=== PATIENT | male | born 1990 ===

== ENCOUNTER 2016-06-07 23:56 | Emergency (ER) | payer MEDICAID ==
[2016-06-08 00:06] VITALS: BMI 46.6
[2016-06-08] MEDS ORDERED: Sodium Chloride 0.9% 1,000 ML IV STA (00:19)
--- NOTE | 2016-06-08 00:24 | ED PDOC ---
Arrival/HPI - General Chief Complaint: GI Problem Time Seen by Provider: 06/08/16 00:19 Historian: Patient - History of Present Illness Narrative History of Present Illness (Text): 06/08/16 00:20 26 y/o male, pmh including appendectomy and cholecystomy, allergic to macrolide and penicillin, c/o abdominal pain with nausea and vomiting x 2 days. Pt. stated that he woke up yesterday morning for fasting blood, been having nausea and vomiting when eating, no chest pain or shortness of breath, no dizziness, no change in vision, no palpitation, no numbness or tingling, no other medical or psychological complaints. Pt. has no recent use of antibiotics for the past 4 weeks, no recent traveling for the past 2 months. Past Medical History - Provider Review Nursing Documentation Reviewed: Yes - Infectious Disease Hx of Infectious Diseases: None - Tetanus Immunization Tetanus Immunization: Up to Date - Cardiac Hx Cardiac Disorders: Yes Hx Heart Murmur: Yes Other/Comment: mitral valve repair - Pulmonary Hx Respiratory Disorders: Yes Hx Asthma: Yes (childhood) - Neurological Hx Neurological Disorder: No - HEENT Hx HEENT Disorder: No - Renal Hx Renal Disorder: No - Endocrine/Metabolic Hx Endocrine Disorders: No - Hematological/Oncological Hx Blood Disorders: No - Integumentary Hx Dermatological Disorder: No - Musculoskeletal/Rheumatological Hx Musculoskeletal Disorders: No - Gastrointestinal Hx Gastrointestinal Disorders: No - Genitourinary/Gynecological Hx Genitourinary Disorders: No - Psychiatric Hx Anxiety: Yes (patient reported - not diagnosed) Hx Panic Disorder: Yes (one panic attack) Hx Substance Use: No - Surgical History Hx Appendectomy: Yes Hx Cholecystectomy: Yes Other/Comment: mitral valve repair - Anesthesia Hx Anesthesia: Yes Hx Anesthesia Reactions: No Hx Malignant Hyperthermia: No Family/Social History - Physician Review Nursing Documentation Reviewed: Yes Family/Social History: Unknown Family HX Smoking Status: Never Smoked Hx Alcohol Use: Yes (social) Hx Substance Use: No Allergies/Home Meds Allergies/Adverse Reactions: Allergies azithromycin [From Zithromax] Allergy (Verified 01/13/16 13:27) RASH Penicillins Allergy (Verified 01/13/16 13:27) RASH Review of Systems - Review of Systems Constitutional: absent: Fatigue, Fevers Eyes: absent: Vision Changes ENT: absent: Hearing Changes Respiratory: absent: Cough Cardiovascular: absent: Chest Pain Gastrointestinal: Abdominal Pain, Nausea, Vomiting. absent: Diarrhea Musculoskeletal: absent: Arthralgias, Back Pain, Neck Pain, Joint Swelling Skin: absent: Rash, Pruritis, Other Neurological: absent: Headache, Dizziness, Focal Weakness, Gait Changes, Speech Changes, Facial Droop, Disequilibrium, Seizure Physical Exam Vital Signs Reviewed: Yes Vital Signs Temp Pulse Resp BP Pulse Ox 06/08/16 01:48 99.5 F 102 H 16 120/77 98 06/08/16 00:05 99.6 F 115 H 18 122/89 97 Temperature: Afebrile Blood Pressure: Normal Pulse: Tachycardic Respiratory Rate: Normal Appearance: Positive for: Well-Appearing, Non-Toxic, Uncomfortable Pain Distress: Moderate Mental Status: Positive for: Alert and Oriented X 3 - Systems Exam Head: Present: Atraumatic, Normocephalic Pupils: Present: PERRL Extroacular Muscles: Present: EOMI Conjunctiva: Present: Normal Mouth: Present: Moist Mucous Membranes Neck: Present: Normal Range of Motion Respiratory/Chest: Present: Clear to Auscultation, Good Air Exchange. No: Respiratory Distress, Accessory Muscle Use Cardiovascular: Present: Regular Rate and Rhythm, Normal S1, S2. No: Murmurs Abdomen: Present: Tenderness (generalized), Distention. No: Normal Bowel Sounds (hypoactive), Peritoneal Signs, Rebound, Guarding Back: Present: Normal Inspection. No: CVA Tenderness Upper Extremity: Present: Normal Inspection. No: Cyanosis, Edema Lower Extremity: Present: Normal Inspection. No: Edema Neurological: Present: GCS=15, Speech Normal, Motor Func Grossly Intact, Gait Normal, Memory Normal Skin: Present: Warm, Dry, Normal Color. No: Rashes Psychiatric: Present: Alert, Oriented x 3, Normal Insight, Normal Concentration Medical Decision Making ED Course and Treatment: 06/08/16 00:23 Viral syndrome vs. instestinal obstruction vs. gastritis vs. influenza vs. obstructing renal stone -labs/ua/lipase -CT abdomen/pelvis -IVF/zofran/pepcid -Observe and reassess 06/08/16 01:17 -Labs are non-significant -negative influenza -UA show no UTI -CT abdomen and pelvis show: mild hernia with no incarceration 06/08/16 01:58 -Pt. still feeling nauseous and tachycardia around 100s, d-dimer and ekg ordered. 06/08/16 03:00 -Ddimer within normal limit, no chest pain or shortness of breath, no pleuritic pain. -EKG show no acute ST or T wave changes. -I discussed the case with Dr. Zhu, he suggest to discharge the patient home with supportive treatment. Pt. stated that he has history of anxiety. -Discharge home with zofran, tamiflu, stay hydrated, take tylenol for pain, follow up with your own pmd and GI within 2 days, return to the ER for any new or worsening signs or symptoms. - Lab Interpretations Lab Results: 06/08/16 00:35 06/08/16 00:35 Lab Results 06/08/16 02:00: D-Dimer, Quantitative 0.33 06/08/16 00:43: Urine Color Yellow, Urine Appearance Clear, Urine pH 6.0, Ur Specific [place] 1.025, Urine Protein Negative, Urine Glucose (UA) Negative, Urine Ketones Negative, Urine Blood Negative, Urine Nitrate Negative, Urine Bilirubin Negative, Urine Urobilinogen 0.2, Ur Leukocyte Esterase Negative 06/08/16 00:35: WBC 9.4 D, RBC 5.11, Hgb 15.1, Hct 43.7, MCV 85.5, MCH 29.5, MCHC 34.6, RDW 13.7, Plt Count 295, MPV 9.6, Gran % 87.3 H, Lymph % (Auto) 6.4 L , [place] % (Auto) 5.8, Eos % (Auto) 0.3 L, Baso % (Auto) 0.2, Gran # 8.17 H, Lymph # 0.6 L, [place] # 0.5, Eos # 0.0, Baso # 0.02, Sodium 138, Potassium 3.8, Chloride 99, Carbon Dioxide 25, Anion Gap 18, BUN 10, Creatinine 1.0, Est GFR ( Amer) > 60, Est GFR (Non-Af Amer) > 60, Random Glucose 117 H, Calcium 8.5, Total Bilirubin 1.0, AST 43, ALT 68 H, Alkaline Phosphatase 55, Total Protein 8.5 H, Albumin 4.5, Globulin 4.0, Albumin/Globulin Ratio 1.1, Lipase 36 , Influenza Typ A,B (EIA) Negative for flu a/b I have reviewed the lab results: Yes Interpretation: No clinic. lab abnormalty - RAD Interpretation Radiology Orders: 06/08/16 00:19 ABD & PELVIS W/O PO OR IV CONT [CT] Stat FINDINGS: Lower thorax: Small RIGHT diaphragmatic hernia containing fat. ABDOMEN: Liver: Fatty infiltration. Gallbladder and bile ducts: Cholecystectomy. No ductal dilation. Pancreas: Unremarkable. No ductal dilation. Spleen: No splenomegaly. Adrenals: No mass. Kidneys and ureters: No renal calculi. No hydronephrosis. Stomach and bowel: No definite mural thickening. No obstruction. Appendix: Appendectomy. PELVIS: Bladder: Apparent mild bladder wall thickening. Incomplete distention, limiting evaluation. No stones. Reproductive: Unremarkable as visualized. ABDOMEN and PELVIS: Intraperitoneal space: No significant fluid collection. No free air. Bones/joints: No acute fracture. Soft tissues: Tiny umbilical hernia containing fat. Vasculature: Retroaortic LEFT renal vein. No abdominal aortic aneurysm. Lymph nodes: No pathologically enlarged lymph nodes. IMPRESSION: 1. Mild cystitis vs underdistention. Correlate with urinalysis. 2. Incidental/non-acute findings are described above. Thank you for allowing us to participate in the care of your patient. Dictated and Authenticated by: Epi Bautista MD 06/08/2016 1:24 AM Eastern Time ([place] & [place]) Account Collector: Radiologist - EKG Interpretation EKG Interpretation (Text): 06/08/16 03:00 EKG: Sinus Tachycardia @ 102 BPM, no acute ST or T wave changes compared with previous ekg. Interpreted by ED Physician: Yes Type: 12 lead EKG Comparison: Com.w/previous EKG - Medication Orders Current Medication Orders: Discontinued Medications Famotidine (Pepcid) 20 mg IVP STAT STA Stop: 06/08/16 00:20 Last Admin: 06/08/16 00:41 Dose: 20 MG IVP Administration Document 06/08/16 00:41 [email or web address] (Rec: 06/08/16 00:41 [email or web address] Charges for Administration # of IVP Administrations 1 Sodium Chloride (Sodium Chloride 0.9%) 1,000 mls @ 999 mls/hr IV .Q1H1M STA Stop: 06/08/16 01:19 Last Admin: 06/08/16 00:41 Dose: 999 MLS/HR eMAR Start Stop Document 06/08/16 00:41 [email or web address] (Rec: 06/08/16 00:41 [email or web address] [email or web address]) Intravenous Solution Start Date 06/08/16 Start Time 00:41 End Date 06/08/16 Ondansetron HCl (Zofran Inj) 4 mg IVP STAT STA Stop: 06/08/16 00:20 Last Admin: 06/08/16 00:41 Dose: 4 MG IVP Administration Document 06/08/16 00:41 [email or web address] (Rec: 06/08/16 00:41 [email or web address] [email or web address]) Charges for Administration # of IVP Administrations 1 - PA / MOTOR PATROL OPERATOR / Resident Statement MD/DO has reviewed & agrees with the documentation as recorded. Disposition/Present on Arrival - Present on Arrival Any Indicators Present on Arrival: No History of DVT/PE: No History of Uncontrolled Diabetes: No Urinary Catheter: No History of Decub. Ulcer: No History Surgical Site Infection Following: None - Disposition Have Diagnosis and Disposition been Completed?: Yes Diagnosis: Nausea and vomiting in adult, Abdominal pain Disposition: HOME/ ROUTINE Disposition Time: 01:58 Patient Plan: Discharge Condition: IMPROVED Additional Instructions: Discharge home with zofran, tamiflu, stay hydrated, take tylenol for pain, follow up with your own pmd and GI within 2 days, return to the ER for any new or worsening signs or symptoms. Prescriptions: Oseltamivir Phosphate [Tamiflu] 75 mg PO BID #10 capsule Ondansetron ODT [Zofran ODT] 4 mg PO TID PRN #8 odt PRN Reason: Other Referrals: Rosemary Washington MD [Primary Care Provider] - Follow up with primary Samantha Hutton MD, MD [Medical Doctor] - Follow up with primary Forms: WORK NOTE
[2016-06-08 00:48] LABS: ADD MANUAL DIFF? NO
[2016-06-08 00:53] LABS: URINE BILIRUBIN NEGATIVE (NEGATIVE); URINE BLOOD NEGATIVE (NEGATIVE); URINE GLUCOSE (UA) NEGATIVE (NEGATIVE); URINE KETONE NEGATIVE (NEGATIVE); URINE LEUKOCYTE ESTERASE NEGATIVE Leu/uL (NEGATIVE); URINE PROTEIN NEGATIVE mg/dL (<30 mg/dL); URINE UROBILINOGEN 0.2 E.U./dL (<1 E.U./dL)
[2016-06-08 00:53] LABS: BASO # 0.02 K/mm3 (0.0-2.0); BASO % 0.2 % (0.0-3.0); EOS % 0.3 % (1.5-5.0); GRAN # 8.17 (1.4-6.5); GRAN % 87.3 % (50.0-68.0); HEMATOCRIT 43.7 % (42.0-52.0); LYMPH # 0.6 (1.2-3.4); LYMPH % 6.4 % (22.0-35.0); MEAN CELL VOLUME 85.5 fL (80.0-105.0); MEAN CORPUSCULAR HEMOGLOBIN 29.5 pg (25.0-35.0); MEAN CORPUSCULAR HGB CONC 34.6 g/dl (31.0-37.0); MEAN PLATELET VOLUME 9.6 fl (7.0-11.0); MONO # 0.5 (0.1-0.6); MONO % 5.8 % (1.0-6.0); PLATELET COUNT 295 10^3/uL (120.0-450.0); RED CELL DISTRIBUTION WIDTH 13.7 % (11.5-14.5); WHITE BLOOD COUNT 9.4 10^3/ul (4.5-11.0)
[2016-06-08 00:56] LABS: URINE APPEARANCE CLEAR (CLEAR); URINE COLOR YELLOW (YELLOW)
[2016-06-08 01:01] LABS: ALB/GLOB RATIO 1.1 (1.1-1.8); ALKALINE PHOSPHATASE 55 U/L (38-133); ALT/SGPT 68 U/L (7-56); AST/SGOT 43 U/L (15-59); BLOOD UREA NITROGEN 10 mg/dL (7-21); CALCIUM 8.5 mg/dL (8.4-10.5); CARBON DIOXIDE 25 mmol/L (21-33); CHLORIDE 99 mmol/L (98-107); GFR AFRICAN-AMERICAN > 60; GLUCOSE,RANDOM 117 mg/dL (70-110); LIPASE 36 U/L (23-300); POTASSIUM 3.8 mmol/L (3.6-5.0); SODIUM 138 mmol/L (132-148); TOTAL PROTEIN 8.5 g/dL (5.8-8.3)
--- NOTE | 2016-06-08 01:24 | CT ---
EXAM: CT Abdomen and Pelvis Without Intravenous Contrast. CLINICAL HISTORY: 26 years old, male; Signs and symptoms; Nausea and vomiting and other: Diarrhea; Prior surgery; Surgery type: Cholecystectomy and appendectomy; Additional info: Abdominal pain/nausea/vomiting TECHNIQUE: Axial computed tomography images of the abdomen and pelvis without intravenous contrast. This CT exam was performed using one or more of the following dose reduction techniques: automated exposure control, adjustment of the mA and/or kV according to patient size, and/or use of iterative reconstruction technique. Coronal and sagittal reformatted images were created and reviewed. COMPARISON: No relevant prior studies available. FINDINGS: Lower thorax: Small RIGHT diaphragmatic hernia containing fat. ABDOMEN: Liver: Fatty infiltration. Gallbladder and bile ducts: Cholecystectomy. No ductal dilation. Pancreas: Unremarkable. No ductal dilation. Spleen: No splenomegaly. Adrenals: No mass. Kidneys and ureters: No renal calculi. No hydronephrosis. Stomach and bowel: No definite mural thickening. No obstruction. Appendix: Appendectomy. PELVIS: Bladder: Apparent mild bladder wall thickening. Incomplete distention, limiting evaluation. No stones. Reproductive: Unremarkable as visualized. ABDOMEN and PELVIS: Intraperitoneal space: No significant fluid collection. No free air. Bones/joints: No acute fracture. Soft tissues: Tiny umbilical hernia containing fat. Vasculature: Retroaortic LEFT renal vein. No abdominal aortic aneurysm. Lymph nodes: No pathologically enlarged lymph nodes. IMPRESSION: 1. Mild cystitis vs underdistention. Correlate with urinalysis. 2. Incidental/non-acute findings are described above.
[2016-06-08 01:49] VITALS: TEMP 99.5; O2SAT 98
[2016-06-08 03:07] VITALS: BP 128/70; PULSE 99
[2016-06-08 03:18] VITALS: RESP 16
--- NOTE | 2016-06-08 10:06 | CARD ---
APPROVED REPORT EKG Measurement Heart [id number] <Conclusion> Sinus tachycardia Right bundle branch block No change
== END 2016-06-08 03:18 | disposition home or self-care (01) ==
LOC: ED 23:56
DX: R11.2 Nausea with vomiting, unspecified (principal); R10.9 Unspecified abdominal pain
CPT/HCPCS: 74176; 80053; 81003; 83690; 85025; 85378; 87804; 93005; 96374; 96375; 99284; J2405; J7040

== ENCOUNTER 2016-07-21 10:10 | Emergency (ER) | payer MEDICAID ==
[2016-07-21 10:18] VITALS: BMI 44.3
[2016-07-21 10:20] VITALS: RESP 18; O2SAT 98
--- NOTE | 2016-07-21 10:39 | ED PDOC ---
Arrival/HPI - General Historian: Patient - General Chief Complaint: Lower Extremity Problem/Injury Time Seen by Provider: 07/21/16 10:35 - History of Present Illness Narrative History of Present Illness (Text): 07/21/16 10:36 26 y/o male, no significant pmh, allergic to macrolides/penicillin, c/o rt. foot /ankle pain x 2 hours. Pt. was walking on the stair, eversion injury to the rt. foot/ankle, painful to bear weight, no numbness or tingling, no headache or night sweat, no dizziness, no rash, no other medical or psychological complaints. (Gage Munguia) Past Medical History - Provider Review Nursing Documentation Reviewed: Yes - Infectious Disease Hx of Infectious Diseases: None - Tetanus Immunization Tetanus Immunization: Up to Date - Cardiac Hx Cardiac Disorders: Yes Hx Heart Murmur: Yes Other/Comment: mitral valve repair - Pulmonary Hx Respiratory Disorders: Yes Hx Asthma: Yes (childhood) - Neurological Hx Neurological Disorder: No - HEENT Hx HEENT Disorder: No - Renal Hx Renal Disorder: No - Endocrine/Metabolic Hx Endocrine Disorders: No - Hematological/Oncological Hx Blood Disorders: No - Integumentary Hx Dermatological Disorder: No - Musculoskeletal/Rheumatological Hx Musculoskeletal Disorders: No - Gastrointestinal Hx Gastrointestinal Disorders: No - Genitourinary/Gynecological Hx Genitourinary Disorders: No - Psychiatric Hx Anxiety: Yes (patient reported - not diagnosed) Hx Panic Disorder: Yes (one panic attack) Hx Substance Use: No - Surgical History Hx Appendectomy: Yes Hx Cholecystectomy: Yes Other/Comment: mitral valve repair - Anesthesia Hx Anesthesia: Yes Hx Anesthesia Reactions: No Hx Malignant Hyperthermia: No Family/Social History - Physician Review Nursing Documentation Reviewed: Yes Family/Social History: Unknown Family HX Smoking Status: Never Smoked Hx Alcohol Use: Yes (social) Frequency of alcohol use: Socially Hx Substance Use: No Allergies/Home Meds Allergies/Adverse Reactions: Allergies azithromycin [From Zithromax] Allergy (Verified 01/13/16 13:27) RASH Penicillins Allergy (Verified 01/13/16 13:27) RASH Review of Systems - Review of Systems Constitutional: absent: Fatigue, Fevers Eyes: absent: Vision Changes ENT: absent: Hearing Changes Respiratory: absent: Cough, Sputum Cardiovascular: absent: Chest Pain Gastrointestinal: absent: Abdominal Pain, Nausea, Vomiting Musculoskeletal: Arthralgias. absent: Back Pain, Neck Pain, Joint Swelling, Myalgias Skin: absent: Rash, Pruritis, Skin Lesions, Laceration Neurological: absent: Headache, Dizziness, Focal Weakness, Gait Changes Psychiatric: absent: Anxiety, Depression, Suicidal Ideation Physical Exam Vital Signs Reviewed: Yes Temperature: Afebrile Pulse: Regular Respiratory Rate: Normal Appearance: Positive for: Well-Appearing, Non-Toxic, Comfortable Pain Distress: None Mental Status: Positive for: Alert and Oriented X 3 - Systems Exam Head: Present: Atraumatic, Normocephalic Pupils: Present: PERRL Extroacular Muscles: Present: EOMI Conjunctiva: Present: Normal Mouth: Present: Moist Mucous Membranes Neck: Present: Normal Range of Motion Respiratory/Chest: Present: Clear to Auscultation, Good Air Exchange. No: Respiratory Distress, Accessory Muscle Use Cardiovascular: Present: Regular Rate and Rhythm, Normal S1, S2. No: Murmurs Abdomen: Present: Normal Bowel Sounds. No: Tenderness, Distention, Peritoneal Signs Back: Present: Normal Inspection Upper Extremity: Present: Normal Inspection. No: Cyanosis, Edema Lower Extremity: Present: Normal Inspection, Other (Rt. ankle/foot: +ttp on the medial aspect of the foot with mild swelling along with mild on the medial ankle region, negative ashwini and simmons signs, FROM without limitation, sensation intact, motor 5/5, +DPPT pulses, capillary refill< 2 seconds, neurovascular intact. ). No: Edema Neurological: Present: GCS=15, CN II-XII Intact, Speech Normal Skin: Present: Warm, Dry, Normal Color. No: Rashes Psychiatric: Present: Alert, Oriented x 3, Normal Insight, Normal Concentration Vital Signs Temp Pulse Resp BP Pulse Ox 07/21/16 11:26 98.0 F 69 18 148/89 98 07/21/16 10:23 156/100 H 07/21/16 10:19 97.7 F 72 18 98 Medical Decision Making - RAD Interpretation Monument Setter Helper: Radiologist ED Course and Treatment: I was available for consultation during PA evaluation. The chart was reviewed by me, and I agree with disposition. The documented history was done by the physician jewel blocker and sawyer. The documented physical exam was done by the physician jewel blocker and sawyer. The documented procedures were done by the physician jewel blocker and sawyer. (Jerry Sutherland) 07/21/16 10:39 -rt. ankle/foot -motrin -observe and reassess 07/21/16 11:13 -xray show no fracture or dislocation but there is mild swelling which I advised the patient to repeat xrays after 5-7 days if pain persist to rule out any fracture as it might not be resulted now. -Discharge home with posterior splint, crutches, motrin, ice compression, nonweight bearing, follow up with your own pmd and orthopedic/fusing machine feeder within 2 days, return to the ER for any new or worsening signs or symptoms. (Gage Munguia) - RAD Interpretation Radiology Orders: 07/21/16 10:35 ANKLE RIGHT 3 VIEWS ROUTINE [RAD] Stat FOOT RIGHT 3 VIEWS ROUTINE [RAD] Stat Normal rt. foot and rt. ankle radiographs (Gage Munguia) - Medication Orders Current Medication Orders: Discontinued Medications Ibuprofen (Motrin Tab) 600 mg PO STAT STA Stop: 07/21/16 10:36 Last Admin: 07/21/16 10:42 Dose: 600 mg - PA / FACILITIES MAINTENANCE ASSISTANT / Resident Statement MD/DO has reviewed & agrees with the documentation as recorded. Disposition/Present on Arrival - Present on Arrival Any Indicators Present on Arrival: No History of DVT/PE: No History of Uncontrolled Diabetes: No Urinary Catheter: No History of Decub. Ulcer: No History Surgical Site Infection Following: None - Disposition Have Diagnosis and Disposition been Completed?: Yes Disposition Time: 11:16 Patient Plan: Discharge - Disposition Diagnosis: Injury of ankle and foot, Joint swelling Disposition: HOME/ ROUTINE Patient Problems: Current Active Problems Problem Status Onset Injury of ankle and foot Acute Joint swelling Acute Condition: IMPROVED Additional Instructions: Discharge home with posterior splint, crutches, motrin, ice compression, nonweight bearing, follow up with your own pmd and orthopedic/fusing machine feeder within 2 days, return to the ER for any new or worsening signs or symptoms. Prescriptions: Ibuprofen [Motrin] 600 mg PO QID PRN #24 tab PRN Reason: Other Referrals: Rosemary Washington MD [Primary Care Provider] - Follow up with primary Keron Valdivia DPM [Staff Provider] - Follow up with primary Fortino Browning MD [Staff Provider] - Follow up with primary Forms: WORK NOTE
--- NOTE | 2016-07-21 11:25 | RAD ---
PROCEDURE: Right Ankle Radiographs. HISTORY: pain with eversion injury COMPARISON: None FINDINGS: BONES: Normal. No fracture. JOINTS: Normal. No osteoarthritis. Ankle mortise maintained. Talar dome intact SOFT TISSUES: Normal. OTHER FINDINGS: None. IMPRESSION: Normal right ankle radiographs.
--- NOTE | 2016-07-21 11:26 | RAD ---
PROCEDURE: Right Foot Radiographs. HISTORY: pain with eversion injury COMPARISON: None. FINDINGS: BONES: Normal. No fracture. JOINTS: Normal. SOFT TISSUES: Normal. OTHER FINDINGS: None. IMPRESSION: Normal right foot radiographs.
[2016-07-21 11:27] VITALS: BP 148/89; PULSE 69; TEMP 98
== END 2016-07-21 11:30 | disposition home or self-care (01) ==
LOC: ED 10:10
DX: S99.911A Unspecified injury of right ankle, initial encounter (principal); X58.XXXA Exposure to other specified factors, initial encounter; M25.40 Effusion, unspecified joint

== ENCOUNTER 2016-10-30 09:22 | Emergency (ER) | payer MEDICAID, OTHER ==
[2016-10-30 09:23] VITALS: BMI 44.3
--- NOTE | 2016-10-30 09:41 | ED PDOC ---
Arrival/HPI - General Chief Complaint: Chest Pain Time Seen by Provider: 10/30/16 09:27 Historian: Patient - History of Present Illness Narrative History of Present Illness (Text): 10/30/16 09:38 This 26 y/o male with pmh Asthma, Anxiety, Mitral valve Repaired, presents to this ED c/o feeling nauseous since last night, and left sided chest pain, and SOB since this morning. SOB makes him feel dizzy. Patient stated pain is no- radiating, but constant. Patient also admitted coughing for 4 weeks, and feeling congested for over 2 weeks. Denies recent travel, trauma, fever, recent illness, or leg swelling. 10/30/16 10:03 PERC negative for PE Time/Duration: Other (see hpi) Quality: Aching Context: Home Past Medical History - Provider Review Nursing Documentation Reviewed: Yes - Infectious Disease Hx of Infectious Diseases: None - Tetanus Immunization Tetanus Immunization: Up to Date - Cardiac Hx Cardiac Disorders: Yes Hx Heart Murmur: Yes Other/Comment: mitral valve prolapse repair - Pulmonary Hx Respiratory Disorders: Yes Hx Asthma: Yes (childhood) - Neurological Hx Neurological Disorder: No - HEENT Hx HEENT Disorder: No - Renal Hx Renal Disorder: No - Endocrine/Metabolic Hx Endocrine Disorders: No - Hematological/Oncological Hx Blood Disorders: No - Integumentary Hx Dermatological Disorder: No - Musculoskeletal/Rheumatological Hx Musculoskeletal Disorders: No - Gastrointestinal Hx Gastrointestinal Disorders: No - Genitourinary/Gynecological Hx Genitourinary Disorders: No - Psychiatric Hx Anxiety: Yes Hx Panic Disorder: Yes (one panic attack) Hx Substance Use: No - Surgical History Hx Appendectomy: Yes Hx Cholecystectomy: Yes Other/Comment: mitral valve repair - Anesthesia Hx Anesthesia: Yes Hx Anesthesia Reactions: No Hx Malignant Hyperthermia: No Family/Social History - Physician Review Nursing Documentation Reviewed: Yes Family/Social History: No Known Family HX Smoking Status: Never Smoked Hx Alcohol Use: Yes (social) Frequency of alcohol use: Socially Hx Substance Use: No Allergies/Home Meds Allergies/Adverse Reactions: Allergies azithromycin [From Zithromax] Allergy (Verified 01/13/16 13:27) RASH Penicillins Allergy (Verified 01/13/16 13:27) RASH Home Medications: Home Meds Medication Instructions Recorded Confirmed Escitalopram Oxalate [Lexapro] 5 mg PO DAILY 10/30/16 10/30/16 Gabapentin [Neurontin] 300 mg PO TID 10/30/16 10/30/16 Review of Systems - Review of Systems Constitutional: Normal. absent: Fatigue, Weight Change, Fevers Eyes: Normal ENT: Normal Respiratory: SOB Cardiovascular: Chest Pain. absent: Palpitations, Edema, Calf Pain, GARCIA, Orthopnea, Syncope Gastrointestinal: Normal. absent: Abdominal Pain, Nausea, Vomiting Genitourinary Male: Normal Musculoskeletal: Normal Skin: Normal Neurological: Normal Endocrine: Normal Hemo/Lymphatic: Normal Psychiatric: Normal Physical Exam Vital Signs Temp Pulse Resp BP Pulse Ox 10/30/16 16:02 90 20 126/74 97 10/30/16 14:12 88 19 119/71 99 10/30/16 13:20 82 17 123/68 98 10/30/16 12:26 84 18 136/73 97 10/30/16 11:25 89 18 126/79 97 10/30/16 09:23 97.7 F 71 18 125/81 100 Temperature: Afebrile Blood Pressure: Normal Pulse: Regular Respiratory Rate: Normal Appearance: Positive for: Well-Appearing, Non-Toxic, Comfortable Pain Distress: None Mental Status: Positive for: Alert and Oriented X 3 - Systems Exam Head: Present: Atraumatic, Normocephalic Pupils: Present: PERRL Extroacular Muscles: Present: EOMI Conjunctiva: Present: Normal Mouth: Present: Moist Mucous Membranes Neck: Present: Normal Range of Motion Respiratory/Chest: Present: Wheezes, Decreased Breath Sounds. No: Respiratory Distress, Accessory Muscle Use, Rales, Retracting, Rhonchi, Tachypneic, Tender to Palpation Cardiovascular: Present: Regular Rate and Rhythm, Normal S1, S2. No: Murmurs Abdomen: Present: Normal Bowel Sounds. No: Tenderness, Distention, Peritoneal Signs Back: Present: Normal Inspection. No: CVA Tenderness Upper Extremity: Present: Normal Inspection, Normal ROM, NORMAL PULSES, Neurovascularly Intact, Capillary Refill < 2s. No: Cyanosis, Edema Lower Extremity: Present: Normal Inspection, NORMAL PULSES, Normal ROM, Neurovascularly Intact, Capillary Refill < 2 s. No: Edema Neurological: Present: GCS=15, CN II-XII Intact, Speech Normal, Motor Func Grossly Intact, Normal Sensory Function, Normal Cerebellar Funct, Gait Normal Skin: Present: Warm, Dry, Normal Color. No: Rashes Psychiatric: Present: Alert, Oriented x 3, Normal Insight, Normal Concentration , Normal Affect. No: Depressed Mood, Suicidal Ideation, Homicidal Ideation, Delusional, Hallucinations, Intoxicated Medical Decision Making ED Course and Treatment: 10/30/16 15:00 Re-evaluation. Patient feels better. Discussed results and plan with patient who expresses understanding. Counseling was provided regarding the diagnosis and prognosis. All questions answered and there is agreement with the plan to discharge home with instructions. Patient stable for discharge. Return if symptoms persist or worsen. I ordered a second Troponin level to be check 10/30/16 16:15 2nd Troponin was negative. Patient was recommended to follow up with pmd in 1- 2 days, and to take medication as instructed. To return to emergency if symptoms worsen. Re-evaluation Time: 16:15 Reassessment Condition: Re-examined, Improved - Lab Interpretations Lab Results: 10/30/16 10:05 10/30/16 09:50 Lab Results 10/30/16 15:10: Troponin I < 0.01 10/30/16 10:10: Urine Color Yellow, Urine Appearance Clear, Urine pH 6.5, Ur Specific [place] 1.020, Urine Protein Negative, Urine Glucose (UA) Negative, Urine Ketones Negative, Urine Blood Negative, Urine Nitrate Negative, Urine Bilirubin Negative, Urine Urobilinogen 0.2, Ur Leukocyte Esterase Negative 10/30/16 10:05: WBC 8.5, RBC 5.50, Hgb 16.2, Hct 46.9, MCV 85.3, MCH 29.5, MCHC 34.5, RDW 13.6, Plt Count 274, MPV 9.2, Gran % 65.2, Lymph % (Auto) 21.8 L, Dunn % (Auto) 9.2 H, Eos % (Auto) 3.4, Baso % (Auto) 0.4, Gran # 5.53, Lymph # 1.9, Dunn # 0.8 H, Eos # 0.3, Baso # 0.03 10/30/16 09:50: Sodium 140, Potassium 4.1, Chloride 101, Carbon Dioxide 27, Anion Gap 16, BUN 10, Creatinine 1.0, Est GFR ( Amer) > 60, Est GFR (Non- Af Amer) > 60, Random Glucose 102, Calcium 9.3, Magnesium 2.0, Total Bilirubin 0.6, AST 58, ALT 119 H, Alkaline Phosphatase 76, Lactate Dehydrogenase 585, Total Creatine Kinase 319 H, CK-MB (CK-2) 0.3, CK-MB (CK-2) % Cancelled, Troponin I < 0.01, NT-Pro-B Natriuret Pep 100, Total Protein 8.6 H, Albumin 4.6 , Globulin 4.0, Albumin/Globulin Ratio 1.2 I have reviewed the lab results: Yes Interpretation: No clinic. lab abnormalty - RAD Interpretation Narrative RAD Interpretations (Text): 10/30/16 11:39 Accession No. : [id number] Patient Name / ID : LEYLA BRADLEY / [id number] Exam Date : 10/30/2016 10:07:39 ( Approved ) Study Comment : Sex / Age : M / 26Y Creator : Justyn Castro MD Dictator : Justyn Castro MD Cpr Instructor : Regulated Program Manager : Justyn Castro MD Approver2 : Report Date : 10/30/2016 10:20:31 My Comment : HISTORY: sob COMPARISON: 01/13/2016 FINDINGS: LUNGS: No active pulmonary disease. PLEURA: No significant pleural effusion identified, no pneumothorax apparent. CARDIOVASCULAR: Normal heart size. Sternotomy wires noted. No congestive change. OSSEOUS STRUCTURES: No significant abnormalities. VISUALIZED UPPER ABDOMEN: Normal. OTHER FINDINGS: None. IMPRESSION: No active disease. Radiology Orders: 10/30/16 09:47 CHEST PORTABLE [RAD] Stat - EKG Interpretation Interpreted by ED Physician: Yes (NSR @ [address] changes) Type: 12 lead EKG Comparison: Similar to previous EKG - Medication Orders Current Medication Orders: Discontinued Medications Albuterol/Ipratropium (Duoneb 3 Mg/0.5 Mg (3 Ml) Ud) 3 ml IH Q15M ESTHER Stop: 10/30/16 10:31 Last Admin: 10/30/16 10:35 Dose: 3 ml Methylprednisolone (Solu-Medrol) 125 mg IM STAT STA Stop: 10/30/16 09:58 Last Admin: 10/30/16 10:12 Dose: 125 mg Disposition/Present on Arrival - Present on Arrival Any Indicators Present on Arrival: No History of DVT/PE: No History of Uncontrolled Diabetes: No Urinary Catheter: No History of Decub. Ulcer: No History Surgical Site Infection Following: None - Disposition Have Diagnosis and Disposition been Completed?: Yes Diagnosis: Asthma exacerbation, Non-cardiac chest pain Disposition: HOME/ ROUTINE Disposition Time: 16:17 Patient Plan: Discharge Patient Problems: Current Active Problems Problem Status Onset Asthma exacerbation Acute Non-cardiac chest pain Acute Condition: GOOD Discharge Instructions (ExitCare): Asthma (ED) Additional Instructions: Call private doctor for follow up visit in 1-2 days. Take medication as instructed. with food. Return to emergency if symptoms worsen. Becareful that cough medication can make you feel drowsy Prescriptions: Albuterol Sulfate [Proair Hfa] 2 puff IH Q6H PRN #120 inh PRN Reason: Wheezing Prednisone [Deltasone] 60 mg PO DAILY #12 tablet Promethazine [Phenergan Syrup] 5 ml PO Q4H PRN #180 ml PRN Reason: Cough Referrals: Rosemary Washington MD [Family Provider] - Follow up with primary Forms: [employer] (Cameroonian)
[2016-10-30 10:00] VITALS: TEMP 97.7
[2016-10-30 10:11] LABS: ALB/GLOB RATIO 1.2 (1.1-1.8); ALBUMIN 4.6 g/dL (3.0-4.8); ALT/SGPT 119 U/L (7-56); AST/SGOT 58 U/L (15-59); BLOOD UREA NITROGEN 10 mg/dL (7-21); CALCIUM 9.3 mg/dL (8.4-10.5); GFR AFRICAN-AMERICAN > 60; GFR NON-AFRICAN AMERICAN > 60
[2016-10-30] MEDS: Albuterol-Ipratrop 3 mg / 0.5 (3 ml) UD IH SCH ×3 (10:12→10:35)
[2016-10-30 10:15] LABS: BASO # 0.03 K/mm3 (0.0-2.0); BASO % 0.4 % (0.0-3.0); EOS # 0.3 (0.0-0.7); EOS % 3.4 % (1.5-5.0); GRAN # 5.53 (1.4-6.5); GRAN % 65.2 % (50.0-68.0); HEMOGLOBIN 16.2 g/dL (14.0-18.0); LYMPH # 1.9 (1.2-3.4); LYMPH % 21.8 % (22.0-35.0); MEAN CELL VOLUME 85.3 fl (80.0-105.0); MEAN CORPUSCULAR HEMOGLOBIN 29.5 pg (25.0-35.0); MEAN CORPUSCULAR HGB CONC 34.5 g/dl (31.0-37.0); MEAN PLATELET VOLUME 9.2 fl (7.0-11.0); MONO # 0.8 (0.1-0.6); MONO % 9.2 % (1.0-6.0); PLATELET COUNT 274 10^3/uL (120.0-450.0); RED CELL DISTRIBUTION WIDTH 13.6 % (11.5-14.5); WHITE BLOOD COUNT 8.5 10^3/ul (4.5-11.0)
--- NOTE | 2016-10-30 10:22 | RAD ---
HISTORY: sob COMPARISON: 01/13/2016 FINDINGS: LUNGS: No active pulmonary disease. PLEURA: No significant pleural effusion identified, no pneumothorax apparent. CARDIOVASCULAR: Normal heart size. Sternotomy wires noted. No congestive change. OSSEOUS STRUCTURES: No significant abnormalities. VISUALIZED UPPER ABDOMEN: Normal. OTHER FINDINGS: None. IMPRESSION: No active disease.
[2016-10-30 10:23] LABS: B-TYPE NATRIURETIC PEPTIDE 100 pg/mL (0-450)
[2016-10-30 10:24] LABS: PH,URINE 6.5 (4.7-8.0); URINE BILIRUBIN NEGATIVE (NEGATIVE); URINE BLOOD NEGATIVE (NEGATIVE); URINE COLOR YELLOW (YELLOW); URINE GLUCOSE (UA) NEGATIVE (NEGATIVE); URINE LEUKOCYTE ESTERASE NEGATIVE Leu/uL (NEGATIVE); URINE NITRATE NEGATIVE (NEGATIVE); URINE PROTEIN NEGATIVE mg/dL (<30 mg/dL); URINE UROBILINOGEN 0.2 E.U./dL (<1 E.U./dL)
[2016-10-30 10:25] LABS: URINE APPEARANCE CLEAR (CLEAR)
[2016-10-30 10:26] LABS: CK-MB 0.3 ng/mL (0.0-3.6)
[2016-10-30 10:34] LABS: TROPONIN I < 0.01 ng/mL
[2016-10-30 16:36] VITALS: BP 128/75; PULSE 78; RESP 16; O2SAT 99
--- NOTE | 2016-10-31 00:50 | CARD ---
APPROVED REPORT EKG Measurement Heart [id number] <Conclusion> Normal sinus rhythm Right bundle branch block Abnormal ECG
== END 2016-10-30 16:35 | disposition home or self-care (01) ==
LOC: ED 09:22
DX: J45.901 Unspecified asthma with (acute) exacerbation (principal); R07.89 Other chest pain
CPT/HCPCS: 71010; 80053; 81003; 82550; 82553; 82948; 83615; 83735; 83880; 84484; 85025; 93005; 96372; 99285; J2930

== ENCOUNTER 2017-08-25 10:21 | Emergency (ER) | payer MEDICAID ==
[2017-08-25 10:21] VITALS: BMI 44.3
[2017-08-25 10:33] VITALS: TEMP 97.9
--- NOTE | 2017-08-25 11:33 | ED PDOC ---
Arrival/HPI - General Chief Complaint: Back Pain Time Seen by Provider: 08/25/17 11:14 Historian: Patient - History of Present Illness Narrative History of Present Illness (Text): 08/25/17 11:28 Pt is an 16 yr old female bib her dad for chest tightness and pressure since last night.. Pt says hes never had debilitating pain like this before and has pain that starts in the low part of the back, wraps around the hips and goes down to his toes. Denies loss of bladder or bowel function, saddle paraethesia, fever, dysuria, nausea, vomiting, cp, sob, headache, trauma or loss of balance. States pain is worse when standing and better while sitting and resting. Time/Duration: 24 hours Symptom Onset: Sudden Symptom Course: Worsening Quality: Stabbing, Burning Severity Level: 8 Activities at Onset: Rest, Light Context: Standing, Walking, Exertion Past Medical History - Provider Review Nursing Documentation Reviewed: Yes - Travel History Have you recently traveled outside [place] w/in the past 3 mons?: No - Infectious Disease Hx of Infectious Diseases: None - Tetanus Immunization Tetanus Immunization: Up to Date - Cardiac Hx Cardiac Disorders: Yes Hx Heart Murmur: Yes Other/Comment: mitral valve prolapse repair - Pulmonary Hx Respiratory Disorders: Yes Hx Asthma: Yes - Neurological Hx Neurological Disorder: No - HEENT Hx HEENT Disorder: No - Renal Hx Renal Disorder: No - Endocrine/Metabolic Hx Endocrine Disorders: No - Hematological/Oncological Hx Blood Disorders: No - Integumentary Hx Dermatological Disorder: No - Musculoskeletal/Rheumatological Hx Musculoskeletal Disorders: No - Gastrointestinal Hx Gastrointestinal Disorders: No - Genitourinary/Gynecological Hx Genitourinary Disorders: No - Psychiatric Hx Psychophysiologic Disorder: Yes Hx Anxiety: Yes Hx Panic Disorder: Yes (one panic attack) Hx Substance Use: No - Surgical History Hx Appendectomy: Yes Hx Cholecystectomy: Yes Other/Comment: mitral valve repair - Anesthesia Hx Anesthesia: Yes Hx Anesthesia Reactions: No Hx Malignant Hyperthermia: No Family/Social History - Physician Review Nursing Documentation Reviewed: Yes Family/Social History: No Known Family HX Smoking Status: Never Smoked Hx Alcohol Use: Yes (social) Hx Substance Use: No Allergies/Home Meds Allergies/Adverse Reactions: Allergies Penicillins Allergy (Verified 08/25/17 10:28) RASH Home Medications: Home Meds Medication Instructions Recorded Confirmed Escitalopram Oxalate [Lexapro] 5 mg PO DAILY 10/30/16 08/25/17 Physical Exam Vital Signs Reviewed: Yes Vital Signs Temp Pulse Resp BP Pulse Ox 08/25/17 10:29 97.9 F 89 16 132/88 97 Temperature: Afebrile Blood Pressure: Normal Pulse: Regular Respiratory Rate: Normal Appearance: Positive for: Well-Appearing, Non-Toxic, Comfortable Pain Distress: None Mental Status: Positive for: Alert and Oriented X 3 - Systems Exam Head: Present: Atraumatic, Normocephalic Pupils: Present: PERRL Extroacular Muscles: Present: EOMI Conjunctiva: Present: Normal Mouth: Present: Moist Mucous Membranes Neck: Present: Normal Range of Motion Respiratory/Chest: Present: Clear to Auscultation, Good Air Exchange. No: Respiratory Distress, Accessory Muscle Use Cardiovascular: Present: Regular Rate and Rhythm, Normal S1, S2. No: Murmurs Abdomen: No: Tenderness, Distention, Peritoneal Signs Back: Present: Normal Inspection, Paraspinal Tenderness, Pain with Leg Raise ( bilateral with radiation to LEs). No: CVA Tenderness Upper Extremity: Present: Normal Inspection. No: Cyanosis, Edema Lower Extremity: Present: Normal Inspection, NORMAL PULSES, Neurovascularly Intact, Capillary Refill < 2 s. No: Edema, CALF TENDERNESS, Cyanosis, Normal ROM, David's Sign, Tenderness, Swelling Neurological: Present: GCS=15, CN II-XII Intact, Speech Normal, Motor Func Grossly Intact Skin: Present: Warm, Dry, Normal Color. No: Rashes Psychiatric: Present: Alert, Oriented x 3, Normal Insight, Normal Concentration Medical Decision Making ED Course and Treatment: 08/25/17 11:33 Impression Pt is an 16 yr old female bib her dad for chest tightness and pressure since last night. (+) SLR bilateral at 45 degrees, point tender to lumbar paraspinals and SIJ Ddx: herniated disc of LS, muscle strain, LS stenosis, Plan manage pain and spasm assess and dispo Progress note 08/25/17 12:33 Pt sitting up in bed and feels adequate relief ready to d/c Follow up with your Primary doctor to discuss scheduling an MRI for the lumbar spine Take Ibuprofen with food every 8 hours starting tomorrow Drink plenty of fluids and rest for today Apply lidocaine patch to affected area of back - Lab Interpretations Lab Results: Lab Results 08/25/17 12:05: Urine Color Yellow, Urine Appearance Clear, Urine pH 6.0, Ur Specific [place] 1.025, Urine Protein Trace H, Urine Glucose (UA) Negative, Urine Ketones Negative, Urine Blood Negative, Urine Nitrate Negative, Urine Bilirubin Negative, Urine Urobilinogen 0.2, Ur Leukocyte Esterase Negative, Urine RBC 0 - 2, Urine WBC 1 - 3, Ur Epithelial Cells None, Urine Bacteria Few - Medication Orders Current Medication Orders: Discontinued Medications Ketorolac Tromethamine (Toradol) 60 mg IM STAT STA Stop: 08/25/17 11:39 Last Admin: 08/25/17 11:56 Dose: 60 mg MAR Pain Assessment Document 08/25/17 11:56 Roz (Rec: 08/25/17 11:56 [id number] Pain Reassessment Is this a pain reassessment? No Sleep Is patient sleeping during reassessment? No Presence of Pain Presence of Pain Yes IM Administration Charges Document 08/25/17 11:56 FRANCISCO J (Rec: 08/25/17 11:56 [id number]) Charges for Administration # of IM Administrations 1 Disposition/Present on Arrival - Present on Arrival Any Indicators Present on Arrival: Yes History of DVT/PE: No History of Uncontrolled Diabetes: No Urinary Catheter: No History of Decub. Ulcer: No History Surgical Site Infection Following: None - Disposition Have Diagnosis and Disposition been Completed?: Yes Diagnosis: Lumbar radiculopathy, acute, Low back pain Disposition: HOME/ ROUTINE Disposition Time: 12:00 Patient Plan: Discharge Patient Problems: Current Active Problems Problem Status Onset Lumbar radiculopathy, acute Acute Low back pain Acute Condition: STABLE Discharge Instructions (ExitCare): Low Back Pain in Adults, Radiculopathy Additional Instructions: Skyler, thank you for letting us take care of you today. Your provider was GENA Bhakta. You were treated for Acute Low Back Pain and Muscle Strain. The emergency medical care you received today was directed at your acute symptoms. If you were prescribed any medication, please fill it and take as directed. It may take several days for your symptoms to resolve. Return to the Emergency Department if your symptoms worsen, do not improve, or if you have any other problems. Follow up with your Primary doctor to discuss scheduling an MRI for the lumbar spine Take Ibuprofen with food every 8 hours starting tomorrow Drink plenty of fluids and rest for today Apply lidocaine patch to affected area of back Please contact your doctor or call one of the physicians/clinics you have been referred to that are listed on the Patient Visit Information form that is included in your discharge packet. Bring any paperwork you were given at discharge with you along with any medications you are taking to your follow up visit. Our treatment cannot replace ongoing medical care by a primary care provider (PCP) outside of the emergency department. Thank you for allowing the [facility] team to be part of your care today. Prescriptions: Cyclobenzaprine [Flexeril] 10 mg PO Q12 5 Days #10 tab Ibuprofen [Motrin Tab] 800 mg PO Q8 5 Days #15 tab Lidocaine 1 each TP DAILY 5 Days #5 adh..patch Referrals: Rosemary Washington MD [Primary Care Provider] - Follow up with primary Forms: [employer] (Azeri), WORK NOTE
[2017-08-25 12:08] LABS: URINE BILIRUBIN NEGATIVE (NEGATIVE); URINE BLOOD NEGATIVE (NEGATIVE); URINE GLUCOSE (UA) NEGATIVE (NEGATIVE); URINE LEUKOCYTE ESTERASE NEGATIVE Leu/uL (NEGATIVE); URINE PROTEIN TRACE mg/dL (<30 mg/dL); URINE UROBILINOGEN 0.2 E.U./dL (<1 E.U./dL)
[2017-08-25 12:21] LABS: URINE APPEARANCE CLEAR (CLEAR); URINE COLOR YELLOW (YELLOW)
[2017-08-25 12:24] LABS: URINE BACTERIA FEW (NEG); URINE RBC 0 - 2 /hpf (0-2)
[2017-08-25 13:41] VITALS: BP 140/88; PULSE 74; RESP 18; O2SAT 99
== END 2017-08-25 14:00 | disposition home or self-care (01) ==
LOC: ED 10:21
DX: M54.16 Radiculopathy, lumbar region (principal); M54.5 Low back pain
CPT/HCPCS: 81001; 96372; 99282; J1885

== ENCOUNTER 2017-11-12 09:09 | Emergency (ER) | payer MEDICAID ==
[2017-11-12 09:09] VITALS: BMI 44.3
--- NOTE | 2017-11-12 09:37 | ED PDOC ---
Arrival/HPI - General Chief Complaint: Chest Pain Time Seen by Provider: 11/12/17 09:26 Historian: Patient - History of Present Illness Narrative History of Present Illness (Text): 11/12/17 09:30 A 27 year old male, whose past medical history includes mitral valve prolapse repair (age 7), heart murmur, asthma, appendectomy, and cholecystectomy, allergic to penicillin, presents to the emergency department complaining of mid- sternal chest pain starting approximately 1 hour ago. Describes chest pain as tight. Patient reports while driving to work today, he began experiencing pain, with associated dizziness as well. He mentions also experiencing some left shoulder pain. States he does not do any heavy lifting whatsoever, and has no history of smoking. Patient denies any nausea or any other complaints at this time. Time/Duration: 1 hour Symptom Onset: Sudden Symptom Course: Unchanged Past Medical History - Provider Review Nursing Documentation Reviewed: Yes - Infectious Disease Hx of Infectious Diseases: None - Tetanus Immunization Tetanus Immunization: Up to Date - Cardiac Hx Cardiac Disorders: Yes Hx Heart Murmur: Yes (Repaired age 7) Hx Mitral Valve Prolapse: Yes (repaired age 7) Other/Comment: mitral valve prolapse repair - Pulmonary Hx Respiratory Disorders: Yes Hx Asthma: Yes (Resolved as child) - Neurological Hx Neurological Disorder: No - HEENT Hx HEENT Disorder: No - Renal Hx Renal Disorder: No - Endocrine/Metabolic Hx Endocrine Disorders: No - Hematological/Oncological Hx Blood Disorders: No - Integumentary Hx Dermatological Disorder: No - Musculoskeletal/Rheumatological Hx Musculoskeletal Disorders: No - Gastrointestinal Hx Gastrointestinal Disorders: No - Genitourinary/Gynecological Hx Genitourinary Disorders: No - Psychiatric Hx Psychophysiologic Disorder: Yes Hx Anxiety: Yes Hx Panic Disorder: Yes (one panic attack) Hx Substance Use: No - Surgical History Hx Appendectomy: Yes Hx Cholecystectomy: Yes Other/Comment: mitral valve repair - Anesthesia Hx Anesthesia: Yes Hx Anesthesia Reactions: No Hx Malignant Hyperthermia: No Family/Social History - Physician Review Nursing Documentation Reviewed: Yes Family/Social History: CAD/[place] (first-cousins that have from [place]; grandfather (age: 40s range) of [place] as well.) Smoking Status: Never Smoked Hx Alcohol Use: Yes (social) Frequency of alcohol use: Socially Hx Substance Use: No Allergies/Home Meds Allergies/Adverse Reactions: Allergies Penicillins Allergy (Verified 11/12/17 09:18) RASH Home Medications: Home Meds Medication Instructions Recorded Confirmed No Known Home Med 11/12/17 11/12/17 Review of Systems - Physician Review All systems were reviewed & negative as marked: Yes - Review of Systems Cardiovascular: Chest Pain (tightness; midsternal region.) Gastrointestinal: absent: Nausea Neurological: Dizziness (associated with chest pain) Physical Exam - Physical Exam Narrative Physical Exam (Text): Gen: VS reviewed, alert, well developed, well nourished, nontoxic, mild distress. ENT: normal pharynx. Eye: EOMI, PERRL. Neck: no JVD, supple, no adenopathy. CV: regular rate, regular rhythm, no rubs, no murmur, no gallops, S1, S2, pulses equal and strong. Pulm: no distress, clear to auscultation, no wheeze, no rhonchi, breath sounds equal, no rales, mid-moderate left lower chest wall tenderness. Abd: soft, nontender, no guarding, no rebound, no rigidity, normal bowel sounds. Ext: no edema. Skin: good color, no rash, no cyanosis. Psych: responds appropriately to questions, normal affect. Neuro: oriented x 3, CN2-12 intact grossly, motor intact, sensation intact. Vital Signs Reviewed: Yes Vital Signs Temp Pulse Resp BP Pulse Ox 11/12/17 13:41 64 17 133/77 100 11/12/17 11:15 71 18 129/74 97 11/12/17 09:22 98.1 F 86 18 145/95 H 100 Temperature: Afebrile Blood Pressure: Normal Pulse: Regular Respiratory Rate: Normal Appearance: Positive for: Well-Appearing Pain Distress: None Mental Status: Positive for: Alert and Oriented X 3 Medical Decision Making ED Course and Treatment: 11/12/17 09:33 Impression: 27 year old male with chest pain and associated dizziness. Physical exam shows mid-moderate left lower chest wall tenderness; no acute findings on examination. Plan: -- EKG -- Chest X-ray -- Toradol -- Labs -- Urinalysis -- Reassess and disposition Prior Visits: Notes and results from previous visits were reviewed. Patient was last seen in the emergency department on 08/25/2017 for chest tightness and pressure. Patient was discharged home. Progress Notes: 11/12/2017 10:29 Chest X-ray IMPRESSION: No active disease. Dictator:Sharan Delong MD 11/12/17 14:08 patient feels well and ready to go home. patient was seen for low risk chest pain, heart score 1, no sig clinical suspicion for PE or aortic dissection. patient remained stable throughout Ed course. patient discharged in stable condition, data and plan discussed with pt in detail. patient understands and agreeable and will make the appropriate follow up and will return for any new or worsening symptoms. - Lab Interpretations Lab Results: 11/12/17 09:42 11/12/17 09:42 Lab Results 11/12/17 13:00: Troponin I < 0.01 11/12/17 10:30: Urine Color Yellow, Urine Appearance Clear, Urine pH 6.5, Ur Specific [place] 1.015, Urine Protein 30 H, Urine Glucose (UA) Negative, Urine Ketones Negative, Urine Blood Negative, Urine Nitrate Negative, Urine Bilirubin Negative, Urine Urobilinogen 0.2, Ur Leukocyte Esterase Negative, Urine RBC 0 - 2, Urine WBC 1 - 3, Ur Epithelial Cells 0 - 2, Urine Bacteria Many 11/12/17 09:42: Troponin I < 0.01 11/12/17 09:42: D-Dimer, Quantitative < 200 11/12/17 09:42: Sodium 144, Potassium 3.9, Chloride 105, Carbon Dioxide 26, Anion Gap 16, BUN 11, Creatinine 0.9, Est GFR ( Amer) > 60, Est GFR (Non- Af Amer) > 60, Random Glucose 105, Calcium 8.7, Magnesium 2.1, Total Bilirubin 0.7, AST 45, ALT 83 H, Alkaline Phosphatase 72, Total Protein 7.5, Albumin 4.3, Globulin 3.2, Albumin/Globulin Ratio 1.3, Triglycerides 198 H, Cholesterol 145, LDL Cholesterol Direct 82, HDL Cholesterol 28 L 11/12/17 09:42: WBC 6.7 D, RBC 4.94, Hgb 14.4, Hct 42.0, MCV 85.0, MCH 29.1, MCHC 34.3, RDW 13.4, Plt Count 284, MPV 9.1, Gran % 66.4, Lymph % (Auto) 23.5, [place] % (Auto) 6.7 H, Eos % (Auto) 3.1, Baso % (Auto) 0.3, Gran # 4.44, Lymph # ( Auto) 1.6, [place] # (Auto) 0.5, Eos # (Auto) 0.2, Baso # (Auto) 0.02 I have reviewed the lab results: Yes - RAD Interpretation Radiology Orders: 11/12/17 09:34 CHEST PORTABLE [RAD] Stat - EKG Interpretation EKG Interpretation (Text): 11/12/17 09:45 0918: nsr at 81 bpm, rbbb, no ectopy, no acute sttw abn Interpreted by ED Physician: Yes - Medication Orders Current Medication Orders: Discontinued Medications Ketorolac Tromethamine (Toradol) 30 mg IVP STAT STA Stop: 11/12/17 09:35 Last Admin: 11/12/17 09:54 Dose: 30 mg MAR Pain Assessment Document 11/12/17 09:54 [facility] (Rec: 11/12/17 09:54 [facility] [id number]) Pain Reassessment Is this a pain reassessment? No Sleep Is patient sleeping during reassessment? No Presence of Pain Presence of Pain Yes Pain Scale Used Pain Scale Used Numeric Location Pain Location Body Site Chest Description Description Throbbing Intensity of Pain at present 9 IVP Administration Document 11/12/17 09:54 [facility] (Rec: 11/12/17 09:54 [facility] [id number]) Charges for Administration # of IVP Administrations 1 - Scribe Statement The provider has reviewed the documentation as recorded by the Lexii Olguin Provider Scribe Attestation: All medical record entries made by the Lexii were at my direction and personally dictated by me. I have reviewed the chart and agree that the record accurately reflects my personal performance of the history, physical exam, medical decision making, and the department course for this patient. I have also personally directed, reviewed, and agree with the discharge instructions and disposition. Disposition/Present on Arrival - Present on Arrival Any Indicators Present on Arrival: No History of DVT/PE: No History of Uncontrolled Diabetes: No Urinary Catheter: No History of Decub. Ulcer: No History Surgical Site Infection Following: None - Disposition Have Diagnosis and Disposition been Completed?: Yes Diagnosis: Chest pain Disposition: HOME/ ROUTINE Disposition Time: 14:10 Patient Plan: Discharge Condition: STABLE Discharge Instructions (ExitCare): Chest Pain (ED) Print Language: SYRIAC Additional Instructions: Follow up with your product safety administrator. Return for any new or worsening symptoms. MIRNA MAYER JR, thank you for letting us take care of you today. Your provider was Dr. Galen Bains and you were treated for CHEST PAIN. The emergency medical care you received today was directed at your acute symptoms. If you were prescribed any medication, please fill it and take as directed. It may take several days for your symptoms to resolve. Return to the Emergency Department if your symptoms worsen, do not improve, or if you have any other problems. Please contact your doctor or call one of the physicians/clinics you have been referred to that are listed on the Patient Visit Information form that is included in your discharge packet. Bring any paperwork you were given at discharge with you along with any medications you are taking to your follow up visit. Our treatment cannot replace ongoing medical care by a primary care provider outside of the emergency department. Thank you for allowing the [facility] team to be part of your care today. If you had an X-Ray or CT scan: A Radiologist will review the ED reading if any change in treatment is needed we will contact you. If you had a blood, urine, or wound culture: It will take several days for the results, if any change in treatment is needed we will contact you. If you had an STI test: It will take 48 hours for the results. Please call after 1 week if you have not heard back. Forms: [employer] (Chinese), WORK NOTE
[2017-11-12 09:54] LABS: BASO # 0.02 K/mm3 (0.0-2.0); BASO % 0.3 % (0.0-3.0); EOS # 0.2 (0.0-0.7); EOS % 3.1 % (1.5-5.0); GRAN # 4.44 (1.4-6.5); GRAN % 66.4 % (50.0-68.0); HEMOGLOBIN 14.4 g/dL (14.0-18.0); LYMPH # 1.6 (1.2-3.4); LYMPH % 23.5 % (22.0-35.0); MEAN CORPUSCULAR HEMOGLOBIN 29.1 pg (25.0-35.0); MEAN CORPUSCULAR HGB CONC 34.3 g/dl (31.0-37.0); MEAN PLATELET VOLUME 9.1 fl (7.0-11.0); MONO # 0.5 (0.1-0.6); MONO % 6.7 % (1.0-6.0); RBC 4.94 10^6/uL (3.5-6.1); RED CELL DISTRIBUTION WIDTH 13.4 % (11.5-14.5); WHITE BLOOD COUNT 6.7 10^3/ul (4.5-11.0)
[2017-11-12 10:04] LABS: ALB/GLOB RATIO 1.3 (1.1-1.8); ALBUMIN 4.3 g/dL (3.0-4.8); ALT/SGPT 83 U/L (7-56); AST/SGOT 45 U/L (17-59); BLOOD UREA NITROGEN 11 mg/dL (7-21); CALCIUM 8.7 mg/dL (8.4-10.5); GFR NON-AFRICAN AMERICAN > 60; HDL CHOLESTEROL 28 mg/dL (29-60)
[2017-11-12 10:15] LABS: LDL CHOLESTEROL 82 mg/dL (0-129)
--- NOTE | 2017-11-12 10:30 | RAD ---
Date of service: 11/12/2017 HISTORY: chest pain COMPARISON: 10/30/2016 FINDINGS: LUNGS: No active pulmonary disease. PLEURA: No significant pleural effusion identified, no pneumothorax apparent. CARDIOVASCULAR: Normal. OSSEOUS STRUCTURES: No significant abnormalities. VISUALIZED UPPER ABDOMEN: Normal. OTHER FINDINGS: None. IMPRESSION: No active disease.
[2017-11-12 11:07] LABS: PH,URINE 6.5 (4.7-8.0); URINE APPEARANCE CLEAR (CLEAR); URINE BILIRUBIN NEGATIVE (NEGATIVE); URINE BLOOD NEGATIVE (NEGATIVE); URINE COLOR YELLOW (YELLOW); URINE GLUCOSE (UA) NEGATIVE (NEGATIVE); URINE LEUKOCYTE ESTERASE NEGATIVE Leu/uL (NEGATIVE); URINE PROTEIN 30 mg/dL (<30 mg/dL); URINE UROBILINOGEN 0.2 E.U./dL (<1 E.U./dL)
[2017-11-12 11:29] LABS: URINE BACTERIA MANY (NEG); URINE EPITHELIAL CELLS 0 - 2 /hpf (0-5); URINE RBC 0 - 2 /hpf (0-2)
[2017-11-12 14:25] VITALS: BP 134/82; PULSE 74; RESP 16; TEMP 98; O2SAT 98
--- NOTE | 2017-11-12 19:19 | CARD ---
APPROVED REPORT Date of service: 11/12/2017 EKG Measurement Heart [id number] <Conclusion> Normal sinus rhythm Right bundle branch block Abnormal ECG
== END 2017-11-12 14:33 | disposition home or self-care (01) ==
LOC: ED 09:09
DX: R07.89 Other chest pain (principal)
CPT/HCPCS: 71045; 80053; 80061; 81001; 83735; 84484; 85025; 85378; 93005; 96374; 99284; J1885

== ENCOUNTER 2018-02-15 08:23 | Emergency (ER) | payer MEDICAID ==
[2018-02-15 08:34] VITALS: TEMP 97.7; BMI 46.6
--- NOTE | 2018-02-15 09:42 | ED PDOC ---
Arrival/HPI - General Chief Complaint: Back Pain Time Seen by Provider: 02/15/18 08:28 Historian: Patient - History of Present Illness Narrative History of Present Illness (Text): 02/15/18 09:39 A 27 year old male, whose past medical history includes lumbar HNP, presents to the emergency department complaining of lower back pain starting at approximately 01:00. Patient has been here in the past for similar complaint. Patient reports pain radiates down bilateral thighs and stops at knees. Patient denies any fever, trauma, bowel/bladder dysfunction, weakness/numbness, or any other complaints at this time. No PMD 02/15/18 17:31 Time/Duration: Other (01:00) Symptom Onset: Sudden Symptom Course: Unchanged Past Medical History - Provider Review Nursing Documentation Reviewed: Yes - Infectious Disease Hx of Infectious Diseases: None - Tetanus Immunization Tetanus Immunization: Up to Date - Cardiac Hx Cardiac Disorders: Yes Hx Heart Murmur: Yes Hx Mitral Valve Prolapse: Yes - Pulmonary Hx Respiratory Disorders: Yes Hx Asthma: Yes - Neurological Hx Neurological Disorder: No - HEENT Hx HEENT Disorder: No - Renal Hx Renal Disorder: No - Endocrine/Metabolic Hx Endocrine Disorders: No - Hematological/Oncological Hx Blood Disorders: No - Integumentary Hx Dermatological Disorder: No - Musculoskeletal/Rheumatological Hx Musculoskeletal Disorders: No - Gastrointestinal Hx Gastrointestinal Disorders: No - Genitourinary/Gynecological Hx Genitourinary Disorders: No - Psychiatric Hx Psychophysiologic Disorder: Yes Hx Anxiety: Yes Hx Panic Disorder: Yes (one panic attack) Hx Substance Use: No - Surgical History Hx Appendectomy: Yes Hx Cholecystectomy: Yes Hx Open Heart Surgery: Yes Hx Valve Replacement: Yes (repair) Other/Comment: mitral valve repair - Anesthesia Hx Anesthesia: Yes Hx Anesthesia Reactions: No Hx Malignant Hyperthermia: No Family/Social History - Physician Review Nursing Documentation Reviewed: Yes Family/Social History: No Known Family HX Smoking Status: Never Smoked Hx Alcohol Use: Yes (social) Frequency of alcohol use: Socially Hx Substance Use: No Allergies/Home Meds Allergies/Adverse Reactions: Allergies Penicillins Allergy (Verified 02/15/18 08:44) RASH Home Medications: Home Meds Medication Instructions Recorded Confirmed Gabapentin [Neurontin] 600 mg PO PRN PRN 02/15/18 02/15/18 Review of Systems - Physician Review All systems were reviewed & negative as marked: Yes - Review of Systems Constitutional: absent: Fevers, Other (no trauma) Genitourinary Male: absent: Dysuria, Frequency, Hematuria, Urinary Output Ch anges Musculoskeletal: Back Pain (lower region radiating down bilateral thighs stopping at the knees.) Neurological: absent: Other (no weakness/numbness) Physical Exam - Physical Exam Narrative Physical Exam (Text): Gen: VS reviewed, alert, well developed, well nourished, nontoxic, mild distress. ENT: normal pharynx. Eye: EOMI, PERRL. Neck: no JVD, supple, no adenopathy. CV: regular rate, regular rhythm, no rubs, no murmur, no gallops, S1, S2, pulses equal and strong. Pulm: no distress, clear to auscultation, no wheeze, no rhonchi, breath sounds equal, no rales. Abd: soft, nontender, no guarding, no rebound, no rigidity, normal bowel sounds. Ext: no edema. Limited ROM to hips secondary to radiating lower back pain. Skin: good color, no rash, no cyanosis. Psych: responds appropriately to questions, normal affect. Neuro: oriented x 3, CN2-12 intact grossly, motor intact, sensation intact. Vital Signs Reviewed: Yes Vital Signs Temp Pulse Resp BP Pulse Ox 02/15/18 08:34 97.7 F 86 17 154/96 H 99 Temperature: Afebrile Blood Pressure: Normal Pulse: Regular Respiratory Rate: Normal Appearance: Positive for: Well-Appearing, Non-Toxic, Comfortable Pain Distress: None Mental Status: Positive for: Alert and Oriented X 3 Medical Decision Making ED Course and Treatment: 02/15/18 09:39 Impression: 27 year old male with lower back pain radiating to bilateral thighs stopping at the knees. Plan: -- Tylenol -- Flexeril -- Decadron Inj -- Toradol -- Reassess and disposition Prior Visits: Notes and results from previous visits were reviewed. Patient was last seen in the emergency department on 11/12/2017 for mid-sternal chest pain. Patient was discharged home. Progress Notes: 02/15/18 10:12 patient feels much better, is able to tolerate the pain, will follow up with his pcp. stable for dc - Medication Orders Current Medication Orders: Discontinued Medications Acetaminophen (Tylenol 325mg Tab) 975 mg PO STAT STA Stop: 02/15/18 08:40 Last Admin: 02/15/18 09:00 Dose: 975 mg MAR Pain/Vitals Document 02/15/18 09:00 MR (Rec: 02/15/18 09:01 [facility] [id number]) Pain Reassessment Is This A Pain ReAssessment? No Sleep Is patient sleeping during reassessment? No Presence of Pain Presence of Pain Yes Pain Scale Used Protocol: [facility] Pain Scale Used Numeric Location Upper or Lower Lower Pain Location Body Site Back Description Sharp Stabbing Intensity 9 Scale Used Numeric Pain Behavior Facial Grimacing Aggravating Factors Changing Position Sitting Alleviating Factors Medication Cyclobenzaprine HCl (Flexeril) 5 mg PO STAT STA Stop: 02/15/18 08:40 Last Admin: 02/15/18 09:00 Dose: 5 mg Dexamethasone (Decadron Inj) 10 mg IM STAT STA Stop: 02/15/18 08:41 Last Admin: 02/15/18 09:01 Dose: 10 mg IM Administration Charges Document 02/15/18 09:01 MR (Rec: 02/15/18 09:01 [facility] [id number]) Injection Site MAR Injection Site Right Deltoid Charges for Administration # of IM Administrations 1 Ketorolac Tromethamine (Toradol) 60 mg IM STAT STA Stop: 02/15/18 08:40 Last Admin: 02/15/18 09:01 Dose: 60 mg MAR Pain Assessment Document 02/15/18 09:01 MR (Rec: 02/15/18 09:02 [facility] [id number]) Pain Reassessment Is this a pain reassessment? No Sleep Is patient sleeping during reassessment? No Presence of Pain Presence of Pain Yes Pain Scale Used Protocol: [facility] Pain Scale Used Numeric Location Upper or Lower Lower Pain Location Body Site Back Description Description Sharp Intensity of Pain at present 9 Pain Behavior Facial Grimacing Aggravating Factors Changing Position Sitting Alleviating Factors/Management Medication Techniques Alleviating Factors Medication IM Administration Charges Document 02/15/18 09:01 MR (Rec: 02/15/18 09:02 [facility] [id number]) Injection Site MAR Injection Site Left Deltoid Charges for Administration # of IM Administrations 1 - Scribe Statement The provider has reviewed the documentation as recorded by the Lexii Olguin Provider Scribe Attestation: All medical record entries made by the Scribe were at my direction and personally dictated by me. I have reviewed the chart and agree that the record accurately reflects my personal performance of the history, physical exam, medical decision making, and the department course for this patient. I have also personally directed, reviewed, and agree with the discharge instructions and disposition. Disposition/Present on Arrival - Present on Arrival Any Indicators Present on Arrival: No History of DVT/PE: No History of Uncontrolled Diabetes: No Urinary Catheter: No History of Decub. Ulcer: No History Surgical Site Infection Following: None - Disposition Have Diagnosis and Disposition been Completed?: Yes Diagnosis: Radiculopathy of lumbar region Disposition: HOME/ ROUTINE Disposition Time: 10:13 Patient Plan: Discharge Condition: STABLE Discharge Instructions (ExitCare): Radiculopathy Prescriptions: Cyclobenzaprine [Flexeril] 5 mg PO TID #15 tab RX: Ketorolac Tromethamine [Toradol] 10 mg PO Q6H 5 Days #20 tab RX: Prednisone [Deltasone] 20 mg PO DAILY 5 Days #10 tablet Forms: WORK NOTE
[2018-02-15 10:50] VITALS: BP 159/95; PULSE 80; RESP 16; O2SAT 94
== END 2018-02-15 10:18 | disposition home or self-care (01) ==
LOC: ED 08:23 → UNDOADMIN 09:43 → ERH 09:43 → ED 10:18
DX: M54.16 Radiculopathy, lumbar region (principal)
CPT/HCPCS: 96372; 99283; J1100; J1885